=== PATIENT | male | born 1985 | race Caucasian/White ===

== ENCOUNTER 2016-08-14 03:32 | Emergency (ER) | payer OTHER ==
[~2016-08-14] VITALS: Ht 175.3 cm; Wt 90.7 kg
[2016-08-14] MEDS ORDERED: LITHIUM CARBON300 M3 PO (04:19)
[2016-08-14] MEDS ORDERED: BENZTROPINE ME0.5 MG (04:20)
[2016-08-14] MEDS ORDERED: RISPERDAL2 MG (04:20)
[2016-08-14 05:26] LABS: ABSOLUTE NEUTROPHILS 5.8 thou/uL (1.4-8.2); BASOPHILS 0.6 % (0.0-2.0); EOSINOPHILS 3.6 % (0.0-3.0); HEMATOCRIT 43.1 % (42.0-52.0); HEMOGLOBIN 14.8 gm/dL (14.0-18.0); LYMPHOCYTES 23.9 % (24.0-44.0); MCH 30.4 pg (26.0-34.0); MCHC 34.4 g/dL (28.0-37.0); MCV 88.5 fL (80.0-100.0); MONOCYTES 10.3 % (1.0-8.0); PLATELET COUNT 237 thou/uL (150-400); POLYS 61.6 % (36.0-66.0); RBC 4.88 mil/uL (4.50-6.00); RDW 12.9 % (10.5-14.5); WBC 9.4 thou/uL (4.0-11.0)
[2016-08-14 05:29] LABS: MANUAL DIFF NO
[2016-08-14 05:38] LABS: ANION GAP 10 mmol/L (7-16); BUN 9 mg/dL (7-18); CALCIUM 8.5 mg/dL (8.5-10.1); CHLORIDE 105 mmol/L (98-107); CO2 25 mmol/L (21-32); CREATININE 0.7 mg/dL (0.7-1.3); GLUCOSE 93 mg/dL (74-106); POTASSIUM 3.4 mmol/L (3.5-5.1); SODIUM 140 mmol/L (136-145)
[2016-08-14 05:40] LABS: ALBUMIN 3.7 g/dL (3.4-5.0); ALKALINE PHOSPHATASE 71 U/L (46-116); SALICYLATE 4.6 mg/dL (2.8-20.0); SGOT 78 U/L (15-37); SGPT 49 U/L (30-65); TOTAL BILIRUBIN 1.2 mg/dL (<0.1-1.0); TOTAL PROTEIN 6.8 g/dL (6.4-8.2)
[2016-08-14 05:41] LABS: ACETAMINOPHEN < 2 ug/mL (10-30)
[2016-08-14 05:59] LABS: AMP/METHAMP Negative (Negative); BARBITURATES Negative (Negative); BENZODIAZEPINES Negative (Negative); COCAINE Negative (Negative); METHADONE Negative (Negative); OPIATES Negative (Negative); PCP Negative (Negative); THC POSITIVE (Negative)
[2016-08-14 15:06] VITALS: BP 130/76
== END 2016-08-14 15:10 ==
LOC: ER 03:32
PROVIDERS: Emergency Medicine
DX: F22 Delusional disorders (principal); F25.0 Schizoaffective disorder, bipolar type; Z88.2 Allergy status to sulfonamides